=== PATIENT | male | born 1955 | race Caucasian/White ===

== ENCOUNTER 2016-09-30 08:51 | Day surgery (SDC) | payer OTHER ==
[~2016-09-30] VITALS: Ht 182.9 cm; Wt 109.0 kg
--- NOTE | ~2016-09-30 | CON ---
PATIENT'S NAME: CHAR RODRIGUEZ [facility] AGE: 61 Y [address] ROOM: [place] [address] LOCATION: [facility] ADMIT DATE: 09/30/2016 Consultation DISCHARGE DATE: 10/01/2016 FAMILY PHYSICIAN: Matias Plascencia PA-C ATTENDING PHYSICIAN: Gaurav Clements REFERRING PHYSICIAN: Andrea Nazario MD CONSULTATION NOTE CHIEF COMPLAINT: Neck pain. HISTORY OF PRESENT ILLNESS: The patient is a 61-year-old male, admitted to the care of Dr. Gaurav Clements for neck pain. I am asked to follow him for medical illnesses postop. When I see him, he has no complaints. He does not have any nausea or vomiting at this point. No chest pain. No numbness in his arms or legs. CURRENT MEDICATIONS: Per nurse's notes. ALLERGIES: PER NURSE'S NOTES. SOCIAL HISTORY: Does not smoke. FAMILY HISTORY: Negative for problems with general anesthesia or bleeding disorder. IMMUNIZATIONS: Status unknown. REVIEW OF SYSTEMS: HEENT: Negative. NECK: Chronic neck pain. LUNGS: No history of asthma. HEART: No history of chest pain or palpitations. GASTROINTESTINAL: No recent nausea, vomiting, or change in bowel habits. GENITOURINARY: No dysuria or frequency. EXTREMITIES: Per Dr. Clements's note. SPINE: Per Dr. Clements's note. MENTAL STATUS: No recent depression or anxiety. PATIENT'S NAME: CHAR RODRIGUEZ [facility] AGE: 61 Y [address] ROOM: [place] [address] LOCATION: [facility] ADMIT DATE: 09/30/2016 Consultation DISCHARGE DATE: 10/01/2016 FAMILY PHYSICIAN: Matias Plascencia PA-C ATTENDING PHYSICIAN: Gaurav Clements PHYSICAL EXAMINATION: VITAL SIGNS: Per nurse's notes. GENERAL APPEARANCE: He is alert male in no apparent distress. Wearing a neck collar. HEENT: Benign. LUNGS: Clear. HEART: No murmur. ABDOMEN: Benign. EXTREMITIES: Unremarkable. NEUROLOGIC: Grossly intact. Cranial nerves intact. Mental status; normal for age. No depression or anxiety. IMPRESSION: 1. Acute on chronic neck pain. 2. Status post neck surgery with Dr. Clements. PLAN: Follow daily. Further treatment as indicated. MD FREDDY CONLEY/sergio /[id number] d: 10/18/16 1401 t: 10/25/16 1440, CONSULTATION REPORT
--- NOTE | ~2016-09-30 | OR ---
PATIENT'S NAME: CHAR RODRIGUEZ [facility] AGE: 61 Y [address] ROOM: [place] [id number] LOCATION: [facility] ADMIT DATE: 09/30/2016 OR/Procedure Report DISCHARGE DATE: FAMILY PHYSICIAN: QAMAR LUNSFORD PA-C ATTENDING PHYSICIAN: Gaurav Clements SURGEON: Gaurav Clements MD IMMIGRATION ATTORNEY: DATE OF PROCEDURE: 09/30/2016 PREOPERATIVE DIAGNOSES: 1. Cervical degenerative disk disease. 2. Cervical spondylosis. 3. Cervical stenosis. 4. Cervical radiculopathy. 5. Neck pain. POSTOPERATIVE DIAGNOSES: 1. Cervical degenerative disk disease. 2. Cervical spondylosis. 3. Cervical stenosis. 4. Cervical radiculopathy. 5. Neck pain. PROCEDURE PERFORMED: 1. Anterior cervical diskectomy and decompression C3-4. 2. Anterior cervical diskectomy and decompression at C4-5. 3. Anterior cervical diskectomy and decompression at C5-6. 4. Application of allograft structure bone C3-4 interspace. 5. Application of allograft structure bone C4-5 interspace. 6. Application of allograft structural bone C5-6 interspace. 7. Anterior cervical fusion C3-4 interspace. 8. Anterior cervical fusion C4-5 interspace. 9. Anterior cervical fusion C5-6 interspace. 10. Application of anterior plate screw instrumentation for vertebral segments, C3-C6. [employer]: VALENTINO Hsu. ANESTHESIA: General. ESTIMATED BLOOD LOSS: 50 mL. COMPLICATIONS: None. SPECIMENS: None. PATIENT'S NAME: CHAR RODRIGUEZ [facility] AGE: 61 Y [address] ROOM: [place] [address] LOCATION: [facility] ADMIT DATE: 09/30/2016 OR/Procedure Report DISCHARGE DATE: FAMILY PHYSICIAN: QAMAR LUNSFORD PA-C ATTENDING PHYSICIAN: Gaurav Clements FINDINGS: Severe cervical spondylosis and stenosis. INSTRUMENTATION USED: Radha Tempus anterior plate screw construct and allograft bone. OPERATIVE INDICATIONS: The patient is a 61-year-old male who I had followed for symptomatic cervical spondylosis, stenosis, and radiculopathy. He had failed conservative treatment. He was offered surgery in the form of an anterior cervical diskectomy and fusion. After details, risks, benefits, and options were explained, he freely consented to surgery. OPERATIVE NARRATIVE: After the patient was correctly identified and operative site initialed, he was taken back to the operating room and placed in a supine position. After general anesthesia was induced, he was placed in the supine position with all bony prominences well-padded and protected. The neck was prepped and draped in the usual sterile fashion. Time-out was taken to verify patient and procedure. After he received IV antibiotics and time-out was taken, the neck was prepped and draped in the usual sterile fashion and his head had been placed in 20 pounds of chin halter traction. A 10 mL 0.25% Marcaine with epinephrine was injected in line with the incision. A 10-blade was used to make a transverse incision in the left side of the neck over operative levels within Rj's lines. Dissection was taken down through subcutaneous tissue with electrocautery. The platysma was opened in line with the incision as was the pretracheal layer of the deep cervical fascia. Blunt dissection brought us down to the anterior margin of the spine. The prevertebral fascia as well as the midline of the longus colli elevated on each side to expose the spine. A bent spinal needle was placed in the disk space and verified at C4-5. The disk above and below were all marked. After self-retaining retractors were placed in the wound, the disks were incised at all levels and then debrided using pituitaries, curettes, and Kerrisons. The remaining osteophytes were taken down with Kerrison. The anterior osteophytes were smoothed with a Leksell rongeur. Disk was debrided back to the posterior osteophytes where they were thinned with a high-speed bur. Then, resected with a fine 1 mm tipped Kerrison. The ligament was resected and released and the cord and nerve roots were decompressed from [id number]. After decompression was completed, all levels of the disk spaces were rasped and prepared for fusion. Bone graft of the appropriate size was impacted in position and recessed below the anterior vertebral margin. The weights were removed and the 3-level plate, appropriate length was held in position, and variable screws placed into C3, C4, C5, and C6 through the plate. Screws were locked to the plate. Wound was irrigated and dried. Final AP and lateral x- rays demonstrated good placement of the bone graft and plate screw construct. The wound was then closed in layers with inner 2-0 Vicryl in an interrupted [id number] fashion in the platysma and a 4-0 Monocryl in the skin. PATIENT'S NAME: CHAR RODRIGUEZ [facility] AGE: 61 Y [address] ROOM: [place] [address] LOCATION: [facility] ADMIT DATE: 09/30/2016 OR/Procedure Report DISCHARGE DATE: FAMILY PHYSICIAN: QAMAR LUNSFORD PA-C ATTENDING PHYSICIAN: Gaurav Clements Sterile dressing was applied and the patient was awakened from anesthesia and taken to the recovery room in stable condition. The surgical orderly was necessary in this procedure for evacuation of blood during decompression and assistance with placement of the bone graft for fusion of the plate screw construct fixation for stabilization. MD JESS CORTEZ/sergio /[id number] d: 09/30/169 t: 10/04/16 1227, OPERATIVE SUMMARY
[~2016-09-30 08:51] MED LIST: ADVIL200 MG PO; FLEXERIL10 MG PO; HYDROCODON-ACE1 EAC4 PO; TYLENOL325 MG PO; ZOFRAN4 MG PO
[2016-09-30] MEDS ORDERED: TYLENOL EXTRA500 MG PO (09:11)
[2016-09-30 10:11] LABS: INR - (THERAPEUTIC) 1.02 (0.92-1.07); PROTIME 10.7 SECONDS (9.8-11.4)
--- NOTE | 2016-09-30 18:01 | NUR ---
PATIENT ALERT AND ORIENTED X3. VSS. ARRIVED FROM PACU AT 1715. ZOFRAN X1 GIVEN AT 1731 WITH RELIEF NOTED. PATIENT PLEASANT AND COOPERATIVE WITH CARES.
--- NOTE | 2016-10-01 04:20 | NUR ---
Significant Event: Alert and oriented X3. Vital signs stable. Edema noted to anterior neck. Decadron given X1 this shift. Gauze/tegaderm dressing is CDI to anterior neck. [place] J collar on when up. Ambulates with stand by assist. Has ambulated to bathroom and in phan. Right upper extremity slightly weaker than left, as was pre-op. Denies numbness/tingling. [place] given for pain. Follow up: Discharge home today.
--- NOTE | 2016-10-01 10:25 | NUR ---
Introduced self/role to patient and his Genet Funez, they live in [place]. He is expecting to be released around noon today. Denied any needs at home, will be there to assist him. Added my name to his marker board.
[2016-10-01] MEDS ORDERED: NORCO 10-325 T1 EACH PO (12:06)
--- NOTE | 2016-10-01 12:58 | NUR ---
patient dimsissed to home. criteria met to met goals. norco 10/325 given for pain. rx slip, return appt card, dismissal instructions, new meds, wound/dressing care, collar use, dagoberto hose use and s/s to report to Dr. Clements all reviewed with patient. Patient and verbalize understanding of instrucitons. to front door with TA to meet and family car.
== END 2016-10-01 12:55 | disposition disaster alternative care site (69) ==
LOC: G3N 08:51 → GSDC 08:51 → G3N 17:28 → GSDC 10-01 12:55
PROVIDERS: Orthopaedic Surgery Orthopaedic Surgery of the Spine
PROC: 0RB30ZZ Excision of Cervical Vertebral Disc, Open Approach (ICD-10-PCS; principal; 2016-09-30)
PROC: 0RG20K0 Fusion of 2 or more Cervical Vertebral Joints with Nonautologous Tissue Substitute, Anterior Approach, Anterior Column, Open Approach (ICD-10-PCS; 2016-09-30)
DX: M48.02 Spinal stenosis, cervical region (principal); M50.11 Cervical disc disorder with radiculopathy, high cervical region; M50.122 Cervical disc disorder at C5-C6 level with radiculopathy; M47.22 Other spondylosis with radiculopathy, cervical region; Z98.890 Other specified postprocedural states; Z79.899 Other long term (current) drug therapy
CPT/HCPCS: C1713; J0690; J1100; J2405; J3010; J3480; J7030